=== PATIENT | female | born 1940 | race Caucasian/White ===

== ENCOUNTER → 2017-04-25 | Outpatient (CLI) | payer OTHER ==
[~2017-04-25] MED LIST: ACID CONTROLLER20 MG PO; ADALAT CC30 MG PO; ASPIR 8181 MG PO; BIOTIN5 M1; CAL MAG ASPART1 EACH; CAL MAG ZINC +1 EAC1 PO; CENTRUM SILVER1 EAC4 PO; CIPRO500 MG PO; CITRACAL PLUS1 EACH PO; CO Q-10100 MG PO; COLACE100 MG PO; CRESTOR10 MG PO; CURCUMIN1 GM; CYMBALTA30 MG PO; CYMBALTA60 MG PO; ENDOCET 5-3251 EACH PO; FISH OIL 1,001000 M2 PO; FISH OIL 500 M1 EACH PO; FISHOIL; FLAX OIL1000 MG PO; GINGER ROOT550 MG; GLUCOSA-CHOND-1 EACH PO; HYDROCHLOROTHIA25 M1 PO; HYDROCHLOROTHIA25 M2 PO; HYDROCODON-ACE1 EAC7 PO; HYDROCODONE-AP1 EAC6 PO; IBUPROFEN 800800 MG PO; KADIAN30 MG PO; LIDODERM 5%1 PATCH TOP; MAGNESIUM OXID400 MG; METOCLOPRAMIDE 55 M1 PO; MIRALAX255 GM PO; MOBIC15 MG PO; MOBIC7.5 MG PO; MOVANTIK25 MG PO; MS CONTIN15 MG PO; MS CONTIN30 MG PO; NEURONTIN 300300 M1 PO; NEURONTIN 400400 M1 PO; NEURONTIN600 MG PO; NEURONTIN800 MG PO; NIFEDICAL XL30 MG PO; Occuvite PO; RELAFEN750 MG PO; SALMON OIL 1,01 EACH; SUPER B COMPLE150 MG; TOVIAZ4 MG PO; TOVIAZ8 MG PO; TRAMADOL 50 MG50 MG PO; TUMERIC TEA; VISION PLUS LU1 EACH; VITAMIN D-32000 UNIT PO; VITAMIN D32000 UNI1; VITAMINC500 PO; VOLTAREN GEL 1100 G1 TOP
== END ==
LOC: ULTRA 15:06
DX: N20.0 Calculus of kidney (principal)

== ENCOUNTER → 2017-07-29 | Outpatient (CLI) | payer OTHER | LOC: RAD 14:01 | DX: M16.12 Unilateral primary osteoarthritis, left hip (principal) ==

== ENCOUNTER → 2017-08-09 | Outpatient (CLI) | payer OTHER | LOC: RAD 11:15 | DX: R05 Cough (principal) ==

== ENCOUNTER → 2017-10-30 | Outpatient (CLI) | payer OTHER | LOC: RAD 13:58 | DX: Z12.31 Encounter for screening mammogram for malignant neoplasm of breast (principal) ==

== ENCOUNTER → 2017-10-30 | Outpatient (CLI) | payer OTHER | LOC: ULTRA 12:48 | DX: M79.602 Pain in left arm (principal) ==

== ENCOUNTER 2020-03-30 13:32 | Inpatient (IN) | payer OTHER ==
[~2020-03-30] VITALS: Ht 170.2 cm; Wt 136.1 kg
[2020-03-30 13:34] VITALS: BP 148/87
--- NOTE | 2020-03-30 13:45 | NUR ---
reports pt is suppose to have L hip replacement but has not been able to until she lose's weight reports pt normally walks with walker but her mobility has changed significantly since Saturday.
[2020-03-30 14:22] LABS: ABSOLUTE NEUTROPHILS 4.7 thou/uL (1.4-8.2); BASOPHILS 0.7 % (0.0-2.0); EOSINOPHILS 1.1 % (0.0-3.0); HEMATOCRIT 38.7 % (37.0-47.0); HEMOGLOBIN 12.7 gm/dL (12.0-15.0); LYMPHOCYTES 14.3 % (24.0-44.0); MCH 31.1 pg (26.0-34.0); MCHC 32.9 g/dL (28.0-37.0); MCV 94.6 fL (80.0-100.0); MONOCYTES 10.1 % (1.0-8.0); PLATELET COUNT 221 thou/uL (150-400); POLYS 73.8 % (36.0-66.0); RDW 13.7 % (10.5-14.5); WBC 6.4 thou/uL (4.0-11.0)
[2020-03-30 14:30] LABS: URINE BILIRUBIN NEGATIVE (Negative); URINE BLOOD TRACE (Negative); URINE COLOR YELLOW; URINE GLUCOSE-RANDOM* NEGATIVE (Negative); URINE KETONES NEGATIVE (Negative); URINE LEUKOCYTES-REFLEX 3+ (Negative); URINE NITRITE-REFLEX NEGATIVE (Negative); URINE PROTEIN (DIPSTICK) TRACE (Negative); URINE UROBILINOGEN 0.2 E.U./dl (0.2-1.0)
[2020-03-30 14:31] LABS: URINE CLARITY CLOUDY
[2020-03-30 14:32] LABS: SQUAMOUS 0-3 Few /LPF (0-3); URINE WBC-REFLEX >25 Many /HPF (0-5)
[2020-03-30 14:33] LABS: BACTERIA-REFLEX >30 Many /HPF (None Seen); CRYSTALS None Seen /LPF (None Seen); URINE RBC None Seen /HPF (0-2)
[2020-03-30 14:35] LABS: ANION GAP 4 mmol/L (7-16); BUN 29 mg/dL (7-18); CALCIUM 8.9 mg/dL (8.5-10.1); CHLORIDE 102 mmol/L (98-107); CO2 31 mmol/L (21-32); CREATININE 1.3 mg/dL (0.6-1.0); GLUCOSE 94 mg/dL (74-106); POTASSIUM 3.5 mmol/L (3.5-5.1); SODIUM 137 mmol/L (136-145)
[2020-03-30 14:42] LABS: DIRECT BILIRUBIN < 0.1 mg/dL (<0.1-0.2); SGOT 19 U/L (15-37); SGPT 22 U/L (30-65); TOTAL BILIRUBIN 0.5 mg/dL (<0.1-1.0); TOTAL PROTEIN 6.6 g/dL (6.4-8.2)
[2020-03-30] MEDS ORDERED: TRAMADOL 50 MG50 MG PO (14:42)
[2020-03-30] MEDS ORDERED: HYDROXYZINE HCL10 M2 PO (14:43)
--- NOTE | 2020-03-30 14:45 | NUR ---
Pt has skin breakdown to folds near gluteus. Minor bleeding noted. Dr. Jensen notified
[2020-03-30 17:48] VITALS: BP 187/96
[2020-03-30 18:55] VITALS: BP 187/96; BP 188/98
[2020-03-30 19:36] VITALS: BP 163/93
--- NOTE | 2020-03-31 03:42 | NUR ---
PT ADMITTED INTO THE UNIT FROM THE ER AT 1915.PT IS ALERT AND ORIENTED TO SELF AND VERY CONFUSE AND FORGETFUL.PT ADMITTED WITH C/O OF HIP PAIN AND BLE PAIN FROM FALL(SATURDAY AND SATURDAY)WHILE STANDING UP.PT IS CONFUSED AND UNABLE TO GIVE INFORMATION.PT APPEARED TO BE ANXIOUS AND KEPT YELLING.PT WAS ADMINISTERED HYDROXYZIN AND TRAMADOL WITH NO IMPROVEMENT.DR MOLINA WAS PAGED AND HE ORDERED HALDOL 5MG PO .PT REMAINED CALM IN BED.PT IS INCONTINENET TO BOWEL AND BLADDER AND AN EXTERNAL CATHETER PUT IN PLACE.PT IS A ON REGULAR DIET.PT HAD 2 BM DURING SHIFT.PT IS MAX ASSIST.PO MEDS TAKEN WHOLE WITH NO ISSUES.PT HAS SKIN BREAKDOWN AND TEARS AND BRUISING.IV ACCESS ON RAC SL.WILL CONTINUE TO MONITOR PER PROTOCOL
[2020-03-31 07:58] VITALS: BP 161/98
--- NOTE | 2020-03-31 11:59 | NUR ---
PT ADMITTED RELATED TO UTI, FALLS, AMS. CM REVIEWED CHART AND SPOKE WITH CARE TEAM. CM CALLED AND SPOKE WITH PT'S SPOUSE THIS MORNING. CM ROLE INTRODUCED. SPOUSE INDICATED THAT PT RESIDES IN A HOUSE WITH SPOUSE WITH A RAMP TO ENTER THROUGH THE GARAGE AND ALL NEEDS ON 1 LEVEL. HE INDICATED THAT UP UNTIL THE WEEK PRIOR TO ADMISSION PT HAD BEEN ABLETO AMBULATE AROUND THE HOUSE WITH A FWW AND HAD BEEN ABLE TO ASSIST WITH HER BATHING, DRESSING, AND TOILETING. HE INDICATED THAT PT HAD BEEN WORKING HARD FOR PAST YEAR ON WEIGHT LOSS AND MORBILITY IN PERPERATION FOR A HIP REPLACEMENT. SPOUSE INDICATED THAT PT HAD JUST STATED HH SERVICES WITH [facility] HAD A VIST WITH NURSE AND PT. HE INIDCATED THAT PT HAD BEEN TO [facility] IN THE PAST. HE INIDCATED THAT HE WAS INTERESTED IN PT POSSIBLY GOING TO 5N. 5N ASSESSED AND INDICATED THAT AT THIS TIME PT WOULDN'T BE APPROPRIATE DUE TO MENTATION. CM TO FOLLOW INDICATED WITH DC PLANNING.
--- NOTE | 2020-03-31 14:01 | NUR ---
THIS NURSE SPOKE WITH DR MOLINA ABOUT PATIENT'S INCREASED ANXIETY HE WANTS CONSULT WITH DR TORRES. ALSO GAVE HALDOL XS 1 ORDER. THIS NURSE GAVE UPDATE ABOUT PATIENTS CARE AND CONDITION.
[2020-03-31 20:07] VITALS: BP 177/89
--- NOTE | 2020-04-01 02:59 | NUR ---
Pt care assumed with pt in bed watching tv at 1915.Pt is alert and oriented to self.Pt is very confuse appeared to be in no distress and spent a calm shift.Pt is incontinent to B/B and maximum assist x2 to 3 persons.Pt pulling out external catheter.Pt receieved phone call from family.Will continue to monitor per poc
[2020-04-01 08:00] VITALS: BP 186/98
--- NOTE | 2020-04-01 08:11 | NUR ---
Nutrition: Assess due to BMI >40. BMI 47 kg/m2 - extreme class III obesity. Pt admitted for falls, AMS, UTI, found to have pyelonephritis and anxiety too. Pt not appropriate for wt loss education at this time given mentation. Noted to be A&O to self only and very confused per EMR. Per CM note, spouse had indicated pt has been working hard this past year on wt loss and mobility in preparation for hip replacement. Weight hx reviewed with limited wt loss findings. Pt weighed 303# per 04/2016, w/ CBW 300# per 03/30/20. Upon further EMR review, pt w/ skin breakdown and current poor po intake. See RD assessment for further nutrition details/intervention plan.
--- NOTE | 2020-04-01 10:36 | NUR ---
PATIENT RESTING IN BED WATCHING TV TOOK AM MEDS W/O DIFFICULTY. PT THERAPY TO WORK WITH PATIENT THIS AM. CALLED TO UPDATE CONDITION. PT GIVEN PRN PAIN MED AND SCEDULED MED ORDERED BY DR TORRES.
--- NOTE | 2020-04-01 12:08 | EKG ---
[facility] [place] [address] ELECTROCARDIOGRAM REPORT Name: AAMIR MILLER Room #: 446- ADM IN M.R.#: [id number] Admission: 03/30/20 Attend Phys: Chintan Jara MD Discharge: Date of : 42 Report #: [id number] THIS REPORT FOR: cc: Chintan Jara MD, Neal A. MD Couchonnal, Luis F. MD ~ THIS REPORT FOR: //name// [facility] Test Date: 2020-04-01 Test Time: 09:00:35 Pat Name: AAMIR MILLER Department: Room: 446 Gender: F Well Control Instructor: NEYDA : 1940 Requested By: Esperanza Perez Order Number: [id number] MD: Mario Piper Measurements Intervals Bock Rate: 81 P: 18 ME: 186 QRS: -26 QRSD: 100 T: 40 QT: 413 QTc: 480 Interpretive Statements Sinus rhythm Borderline left axis deviation Abnormal R-wave progression, early transition Compared to ECG 12/18/2011 15:52:30 Intraventricular conduction delay no longer present Electronically Signed On 04-01-2020 12:06:27 CDT by Mario Piper [email or web address] <ELECTRONICALLY SIGNED> By: Mario Piper MD 04/01/20 1206 9 09 Mario Piper MD /EPI
--- NOTE | 2020-04-01 14:37 | NUR ---
PATIENT WAS SEEN BY AMBREEN GANDHI NP WITH DR. BOYKIN, FOR REHAB CONSULT ON 03/31/20. AT THIS TIME PATIENT IS NOT A CANDIDATE FOR ACUTE REHAB DUE TO INABILITY TO PARTICIPATE/COOPERATE WITH THERAPY DUE TO DECREASED MENTATION. WILL CONTINUE TO FOLLOW AND REASSESS FOR ACUTE REHAB/5N IF IMPORVEMENT SEEN. THANK YOU FOR THIS REFERRAL.
[2020-04-01 15:05] VITALS: BP 164/90
[2020-04-01 20:05] VITALS: BP 148/107
--- NOTE | 2020-04-02 02:07 | NUR ---
ASSUMED PT CARE AT 1900. PT IS VERY CONFUSED - YELLS OUT WHEN STAFF CHANGES THE BED LINEN. PT HAS A LOT OF SKIN BREAKDOWN, SKIN TEARS ON SIDES OF LEGS, REDNESS ON BUTTOCKS, BREAKDOWN IN BETWEEN FOLDS OF LEGS. THE SKIN IS VERY FRAGILE STARTED BLEEDING DURING THIS SHIFT. INCONTINENT OF BB. PM MEDS GIVEN WITH NO ISSUES. BP HIGH TONIGHT WHICH SEEMS TO BE PTS NORMAL DURING THIS STAY. DID NOT SLEEP MUCH BUT RESTED CALMLY IN BED ALL OF SHIFT.
[2020-04-02 06:00] VITALS: BP 163/89
[2020-04-02 08:54] VITALS: BP 171/82
--- NOTE | 2020-04-02 16:42 | NUR ---
PT A&OX SELF. IV INTACT IN R AC. INFUSING IV ABX. INCONT OF BLADDER WILL NOT LEAVE PURE WICK IN PLACE. MOANS AND YELLS OUT THROUGHOUT THE DAY. SKIN TEARS ON BOTH L AND R BUTTOCKS. ATIVAN WAS ORDERED TODAY WITH POSITIVE EFFECT. CALL LIGHT W/I REACH THOUGH PT NOT ORIENTED ENOUGH TO USE. WILL CONT POC,
[2020-04-02 18:02] VITALS: BP 176/100
--- NOTE | 2020-04-02 20:10 | NUR ---
1920 ASSUMED CARE OF PT AFTER REPORT FROM ADELE 2007 BASELINE ASSESSMENT COMPLETED PT ALERT ONLY TO SELF, RESTING IN BED WITH NO COMPLAINTS AT THIS TIME, MEDS GIVEN PER JAN, PT IS CONFUSED, AND SLIGHTLY AGITATED, WILL CONTINUE TO MONITOR WITH HOURLY ROUNDING, PT IS INCONTINEN, POSITION CHANGE IN BED, FALL PRECAUTIONS IN PLACE.
[2020-04-02 22:39] VITALS: BP 164/88
[2020-04-03 03:37] VITALS: BP 148/84
[2020-04-03 09:06] VITALS: BP 165/70
[2020-04-03 15:53] VITALS: BP 112/112
--- NOTE | 2020-04-03 16:43 | NUR ---
PT A&O TO SELF ONLY. NON AMBULATORY AT THIS TIME. PT IS COMPLETLY CONFUSED. HAS PULLED OUT ANOTHER IV TODAY. R FA PIV RESTARTED BY IV TEAM. INCONT OF BOWEL AND BLADDER TODAY. PT MAKES NO ATTEMP TO HELP TURN IN THE BED THOUGH SCREAMS WHEN TURNED. SKIN TEARS NOTED TO BOTH LEFT AND RIGHT BUTTOCKS.
[2020-04-03 19:16] VITALS: BP 163/85
[2020-04-04 05:56] VITALS: BP 174/86
--- NOTE | 2020-04-04 07:57 | NUR ---
PT LYING IN BED. INCONTINENT. DENIES PAIN. RESTING COMFORTABLY. NO NEEDS VOICED. FREQUENT OBSERVATION.
[2020-04-04 08:07] VITALS: BP 181/93
--- NOTE | 2020-04-04 10:41 | NUR ---
WOUND CONSULT; SKIN TEARS WERE IDENTIFED TO THE HIPS BULATERALLY, LIKELY FROM TURNING. THE PATIENTS LOWER BODY IS LARGER THAN THE UPPER BODY WHICH HAS VERY LOOSE SKIN WHICH MAKES IT DIFFICULT TO TURN. BILATERAL KNEES HAVE BRUSING OF UKNOWN ORIGION. RECOMMENDATIONS; 1-INTERDRY TO KNEES(POSTERIOR) BILATERALLY. CHANGE M/W/F AND IF SOILED. 2-BILATERAL PROFORE BOOTS. 3-LOW AIR LOSS PUMP. 4-Q2H TURNING 5-APPLY PUREWICK WITH FREQUENT ASSESSMENT FOR REPOSITIONING THE DEVICE. DISCUSSED WITH RN
[2020-04-04 17:42] VITALS: BP 165/80
[2020-04-04 20:07] VITALS: BP 141/75
--- NOTE | 2020-04-04 20:37 | NUR ---
ASSUMED CARE OF PATIENT AT 0715, PATIEHT DENIES PAIN THIS SHIFT. PATIENT VERY CONFUSED, HOLLERING MOST OF THE SHIFT. DR TORRES HERE THIS SHIFT, INFOEMED DR TOM KOLB PATIENT'S BEHAVIOR, NO NEW ORDERS RECEIVED. PATIENT REFUSED BREAKFAST, LUNCH AND WAS ASSIST WITH DINNER MEAL SHE ATE 50%. LORAZEPAM 0.25 PO GIVEN NOT EFFECTIVE. /MARYJANE UPDATED AT THE END OF THE SHIFT. PATIENT INCONT. OF URINE. WOUND CARE SAW THE PATIENT, WOULD LIKE TO KEEP HER DRY, TRIED FEMALE CATHETER, PATIENT REMOVED X 3, AND SHE KEPT THROWING LINEN AND OTHER ITEMS ON THE FLOOR. DRESSINGS TO MAGDY. BUTTOCKS DONE BY WOUND RADHA, AND REINFORCED THIS SHIFT. WILL CONTINUE TO MONITOR.
--- NOTE | 2020-04-05 04:13 | NUR ---
RECIEVED CARE OF THIS PATIENT AT 1900. PATIENT ALERT AND ORIENTED TO SELF ONLY. PATIENT ON BEDREST. SCREAMS AND HOLLARS WHEN TURNED. DOES SEEM TO UNDERSTAND THE NEED FOR THE TURNING WHEN YOU EXPLAIN THE NEED TO PATIENT. HAS DRESSING ON BUTTOCLS. BODY HAS LOTS OF BRUISES. HAS HAS HAD VERBAL AND VISUAL HALLUCINATIONS. AT TIMES IS VERY LOUD AND HOLLARS THINGS OUT. NOT ALWAYS EASY TO REDIRECT. ASKED PATIENT IF SHE WOULD TRY AN EXTERNAL FEMALE CATH, SHE SAID YES. PLACED AND WITH MINUTES IT WAS PULLED OUT. SLEPT OFF AND ON DURING NIGHT. DENIES PAIN UNLESS MOVING HER. SHE IS AFRAID OF FALLING OR GETTING HURT WHEN TURNED.
[2020-04-05 08:14] VITALS: BP 171/88
--- NOTE | 2020-04-05 10:41 | NUR ---
See follow up documentation 04/05. Continue oral supplements as ordered.
--- NOTE | 2020-04-05 14:14 | NUR ---
Assumed care of pt at 0700. Pt a&ox1. Confused. Frequently yells out for help but when asked what she needs, pt does not make sense. Skin tear dressings changed. Pt refuses to work with physical therapy. Provider called unit and states he wants physical therapist to call him after they work with patient. Might need SNF placement. Q2h turn. Incontinent of B&B. Talked to pt's and updated on patient. Fall precautions in place. Will continue to monitor.
--- NOTE | 2020-04-05 14:15 | NUR ---
PSYCH STILL WORKING TO ADJUST MEDS. PT IS PROGRESSING SLOWLY. OT WORKED WITH PT YESTERDAY BUT PT DIDN'T. HOPE IS THAT PT WILL CLEAR ENOUGH TO O TO 5N ONCE MEDICALLY STABLE. CM TO FOLLOW INDICATED WITH DC PLANNING.
[2020-04-05 14:44] VITALS: BP 157/79
[2020-04-05 19:25] VITALS: BP 164/89
--- NOTE | 2020-04-06 04:00 | NUR ---
ASSESSMENT COMPLETED. PT WAS OBSERVED SLEEPING AT START OF SHIFT. PT LATER WAS AWAKE TO TAKE PILLS. I OFFERED ICE CREAM, SHE WAS HAPPY AND ATE IT- SHE WAS THANKFUL. WE COULD HAVE SIMPLE CONVERSATION - NOT ANYTHING DIFFICULT TO PROCESS BECAUSE THEN SHE GETS PARANOID. PRIOR TO CLEANING AND REPOSITIONING HER, I INFORMED HER BUT STILL SHE SCREAMED FROM PAIN IN KNEES AND BOTTOM- AND "THINK" WE ARE HURTING HER. SHE WAS SLIGHTLY COOPERATIVE. DRSG CHANGE APPLIED TO BUTTOCKS. INTERDRY APPLIED BEHIND KNEES.WILL CONTINUE WITH POC TILL EOS.
[2020-04-06 04:51] VITALS: BP 135/77
[2020-04-06 07:47] VITALS: BP 138/69
--- NOTE | 2020-04-06 10:31 | NUR ---
WOUND CARE F/U ASSESSED WOUNDS W/ SENIOR ANALYTICAL CHEMIST ADELE, PT CONFUSED, YELLING OUT AT TIMES, REASSURANCE GIVEN STAFF TRYING TO CARE FOR WOUNDS, INCONT LARGE AMT URINE, PER NSG STAFF PT PULLING PURE WICK CATH OUT. HIP/BUTTOCKS WOUNDS HEALING, NO S/S INFECTION, SCANT DRAINAGE, SKIN TEAR R POSTERIOR KNEE, SCANT BLEEDING NOTED, XEROFORM APPLIED AND BORDER FOAM DRSG, PHOTOS TAKEN, SEE PROCESS INTERVENTION FOR WOUND DETAILS RECOMMENDATIONS ADVISED STAFF TO BE CAREFUL W/ TURNING, CONT POC, XEROFORM TO SKIN TEARS, COVER W/ ABD PAD OR BORDER FOAM DRS CONT TURN Q 2 HOURS, CONT LOW AIR LOSS PUMP TO BED TRY PURE WICK CATH AGAIN SENIOR ANALYTICAL CHEMIST AWARE
--- NOTE | 2020-04-06 12:08 | NUR ---
PHYSICIAN ASKED THAT CM LOOK INTO PT GOING TO [facility] OR SNF UPON DC. HE CALLED AND SPOKE WITH PT'S SPOUSE. CM REACHED OUT TO DR. TORRES TO SEE WHICH SHE THOUGH MIGHT BE MOST APPROPRIATE. AWAITING RESPONSE. CM WILL THEN CALL SPOUSE WELL TO DISCUSS OPTIONS.
[2020-04-06 15:13] VITALS: BP 143/79
--- NOTE | 2020-04-06 15:18 | NUR ---
CM SPOKE WITH PT'S SPOUSE AND EMAILED LIST OF IN NETWORK SKILLED REHAB FACILITIES. CM CALLED [facility] AND THEY ARE OON AND WOULD OWE $337.50/DAY WHICH THEY WERE WILLING TO REDUCE TO $150/DAY. SPOUSE ASKED THAT [facility]ERR[facility] TO [facility], [facility], AND [facility]. CM NOTIFIED DR. MOLINA. AWAITING RESPONSES. CM TO FOLLOW INDICATED WITH DC PLANNING.
--- NOTE | 2020-04-06 16:15 | NUR ---
FAXED REFERRAL TO [facility] RECEIVED CONFIRMATION AND LEFT MSG WITH TERRANCE IN ADM. FAXED REFERRAL TO [facility] OP SPOKE WITH PÉREZ IN ADM SHE RECEIVED REFERRAL AND WILL REVIEW. FAXED REFERRAL TO [facility] SPOKE WITH ANANT IN ADM SHE RECEIVED REFERRAL AND WILL REVIEW. DP TO FOLLOW.
--- NOTE | 2020-04-06 18:25 | NUR ---
PT A&OX SELF. NON AMBULATORY AT THIS TIME. IV INTACT IN R FA. PT SCREAMS "YOUR HURTING ME" WITH ALL CARES. SKIN TEARS ON HIPS/ BUTTOCKS ARE LOOKING IMPROVED, SEE PHOTO'S. INCONT OF B/B THROUGHOUT THE DAY. CM IS WORKING ON SENT REFERALS TO SNF. WILL CONT POC.
[2020-04-06 22:10] VITALS: BP 139/75
--- NOTE | 2020-04-07 02:17 | NUR ---
PT WAS OBSERVED WATCHING TV IN HER ROOM AT START OF SHIFT.PT DENIED PAIN,N/V SO FAR. PT ANXIOUS WITH CARE,SCREAMS OUT BEFORE SHE IS TOUCHED.EMOTINAL SUPPORT GIVEN WITH CARE.DRSG ON HER HIPS AND POSTERIOR KNEE REINFORCED.PT REF TO HAVE HER PRAFO BOOTS ON.PT REPOSITIONED WHILE IN BED .PT RESTING ON HER BED AT THIS TIME.FALL PRECAUTIONS IN PLACE,CALL LIGHT WITHIN REACH.
[2020-04-07 05:25] VITALS: BP 140/66
[2020-04-07 05:38] LABS: ABSOLUTE NEUTROPHILS 2.3 thou/uL (1.4-8.2); BASOPHILS 2.6 % (0.0-2.0); EOSINOPHILS 5.2 % (0.0-3.0); HEMATOCRIT 34.7 % (37.0-47.0); HEMOGLOBIN 11.5 gm/dL (12.0-15.0); LYMPHOCYTES 24.1 % (24.0-44.0); MCH 31.4 pg (26.0-34.0); MCV 94.9 fL (80.0-100.0); MONOCYTES 10.2 % (1.0-8.0); PLATELET COUNT 266 thou/uL (150-400); POLYS 57.9 % (36.0-66.0); RBC 3.66 mil/uL (4.20-5.00); RDW 13.7 % (10.5-14.5); WBC 3.9 thou/uL (4.0-11.0)
[2020-04-07 06:18] LABS: ALBUMIN 2.3 g/dL (3.4-5.0); CALCIUM 8.2 mg/dL (8.5-10.1); CREATININE 0.8 mg/dL (0.6-1.0); POTASSIUM 4.1 mmol/L (3.5-5.1); TOTAL BILIRUBIN 0.5 mg/dL (<0.1-1.0); TOTAL PROTEIN 5.2 g/dL (6.4-8.2)
[2020-04-07 07:14] VITALS: BP 145/69
--- NOTE | 2020-04-07 10:48 | NUR ---
CM HAD FOLLOWED UP WITH SPOUSE YESTERDAY EVENING AND HE INDICATED THE HAD REACHED OUT TO [facility] AND THAT [employer] INFORMED HIM THAT LONG PT'S IS MEDICARE CERTIFIED FACILITY THEY WOULD BE COVERED. CM TRIED TO CONVEY TO HIM THAT THAT ISN'T TECHNICALLY THE CASE AND THAT [facility] IS OON AND THAT THEY HAD LOWERED DAILY OP RATE TO $150 PER DAY IF THEY ELECTED TO GO THERE. SPOUSE WAS LOOKING AT [employer] AND WANTED TO LOOK OVER SOME OTHER FACILITY RATEINGS. THIS AM CM HEARD BACK FROM [facility] AND [facility] AND THEY CAN ACCEPT PT. CM CALLED P'S SPOUSE AND HE INDICATED THE HAD CALLED [employer] AND AGAIN ON A RECORDED LINE HE WAS INFORMED THAT HEY SHOULD BE OVERED TO GO TO [facility]. HE WENT AND BROUGHT COPIS OF INSURANCE CARDS TO [facility] THIS AM AND SPOKE WITH MARIBELL. CM CALLED AND SPOKE WITH MAGALY SHE IS AWARE AND IS FOLLOWING UP STATING THEY MIGHT NO HAVE TO BILL THEY HAVE A SECONDARY. CM AWAITING RESPONSE.
--- NOTE | 2020-04-07 11:34 | NUR ---
FAXED REFERRAL TO [facility] RECEIVED CONFIRMATION AND SPOKE WITH MAGALY IN ADM SHE WILL REVIEW.
[2020-04-07] MEDS ORDERED: CEFDINIR300 MG PO (12:35)
[2020-04-07] MEDS ORDERED: DIVALPROEX SOD250 M3 PO (12:35)
[2020-04-07] MEDS ORDERED: DEPAKOTE500 MG PO (12:36)
--- NOTE | 2020-04-07 14:22 | NUR ---
[facility] IS ABLE TO ACCEPT PT THIS DAY. ORDERS COMPLETED AND FAXED. CHART COPY ORDERED. CM NOTIFIED PT'S SPOUSE HE IS AWARE AND AGREEABLE. CAYLA SANDOVAL ARRANGED FOR 1530. REPORT TO BE CALLED TO . NO OTHER CM INTERVENTION INDICATED. CASE CLOSED.
--- NOTE | 2020-04-07 16:07 | NUR ---
FAXED DC ORDERS/SUMMARY TO [facility] SPOKE WITH MAGALY IN ADM SHE RECEIVED ORDERS.
--- NOTE | 2020-04-07 16:48 | NUR ---
ASSUMED CARE OF PATIENT AT 0715, PATIENT ALERT X1 WITH CONFUSION AND FORGETFUL. PATIENT DENIES PAIN THIS SHIFT. C/O PAIN WITH MOVING IN BED. PATIENT HAS RIGHT FOREARM IV IN PLACE, FLUSHED WITH NS AND REMAINS PATENT. PATIENT HOLLARS OUT MOST OF THE SHIFT, SHE RECEIVED DEPAKOTE SCHEDULED THIS AM, ALSO GAVE RISPERIDONE 0.25 MG/PO/PRN, MEDICATION WAS NOT EFFECTIVE. PATIENT WILL DISCHARGE TO [facility], REPORT GIVEN TO ESAU/BARRY. ALL PERSONAL BELONGINGS SENT WITH THE PATIENT, DISCHARGE PACKET SENT WITH THE PATIENT. UPDATE GIVEN TO /MARYJANE.
== END 2020-04-07 17:02 | DRG 689 ==
LOC: ER 13:32 → EROBS 15:06 → 4S 15:06
PROVIDERS: Emergency Medicine; Psychiatry & Neurology Psychiatry; ADMIT Family Medicine
DX: N39.0 Urinary tract infection, site not specified (principal); G92 Toxic encephalopathy; Z68.42 Body mass index [BMI] 45.0-49.9, adult; N12 Tubulo-interstitial nephritis, not specified as acute or chronic; I10 Essential (primary) hypertension; E78.5 Hyperlipidemia, unspecified; F41.9 Anxiety disorder, unspecified; M16.10 Unilateral primary osteoarthritis, unspecified hip; F03.90 Unspecified dementia, unspecified severity, without behavioral disturbance, psychotic disturbance, mood disturbance, and anxiety; E66.01 Morbid (severe) obesity due to excess calories; B96.89 Other specified bacterial agents as the cause of diseases classified elsewhere; B95.2 Enterococcus as the cause of diseases classified elsewhere; Z96.0 Presence of urogenital implants; Z79.899 Other long term (current) drug therapy; Z88.1 Allergy status to other antibiotic agents; Z88.2 Allergy status to sulfonamides; Z87.442 Personal history of urinary calculi
CPT/HCPCS: 10102

== ENCOUNTER 2020-08-23 21:57 | Inpatient (IN) | payer OTHER ==
[~2020-08-23] VITALS: Ht 172.7 cm; Wt 108.9 kg
--- NOTE | ~2020-08-23 | EMS ---
[address] [address] EMS Patient Care Report Name: AAMIR MILLER Room #: REG SOTO Daugherty#: [id number] Admission: 08/23/20 Attend Phys: Discharge: Date of : 42 Report #: [id number] THIS REPORT FOR: //name// Report Transmitted: 08/23/2020 22:54 EMS Care Summary [facility] MED-ACT Incident [id number] @ 08/23/2020 21:18 Incident Location [address] [place] [address] Patient AAMIR MILLER Female, 80 Years 1940 Patient Address [address] [place] [address] Patient History Behavioral/Psychiatric Disorder,Dementia, Patient Medications Wellbutrin, Chief Complaint "Her hand is swollen" Disposition Transported No Lights/[place] [facility] Reason Sick Person Transported To [facility] Narrative upon our arrival located pt inside private residence with family and FD at her side. pt found seated in a recliner inside living area with luis lift in place, being cleaned by a family member. pt noted to be loudly yelling, easily agitated. FD explained family summoned 911 on the pt's behalf with a c/o atraumatic R hand and wrist swelling as well as discomfort. family confirmed this had been present since the previous Saturday with substantial increase per [address] [address] EMS Patient Care Report Name: AAMIR MILLER Room #: REG [facility]US[facility].#: [id number] Admission: 08/23/20 Attend Phys: Discharge: Date of : 42 Report #: [id number] their account in swelling over the course of today. family denied pt had previously been evaluated by a physician for the swelling or pain. v/s obtained. family denied any recent known injury including fall. pt's family confirmed the pt to have a history of dementia without any recent changes to her normal mental status per their account. pt lifted to EMS cot where she was secured in a POC with appropriate seatbelts applied. v/s monitored en route. pt found to be uncooperative and easily agitated en during transport. 4 Lead EKG placed. venous access obtained and blood glucose measured. report called to ED without incident. upon arrival pt sheet lifted to ED bed 4 with rails upx2 and staff at her side. report given to ED RN without incident. Initial Vitals @21:47P: 101, @21:43P: 116,R: 20,BP: 120/81,GCS: 14,SpO2: 91,Revised Trauma: 12, @21:52P: 102,R: 20,BP: 128/69,GCS: 14,Temp: 100.5F,Glucose: 141,SpO2: 92,Revised Trauma: 12, @21:33P: 101,R: 20,BP: 136/85,GCS: 14,SpO2: 93,Revised Trauma: 12, Assessments @21:32MENTAL:Confused,Person Oriented,SKIN:HEENT:Eyes: Right: Constricted,Eyes: Left: Constricted,Eyes: Left Pupil: 2-mm,Eyes: Right Pupil: 2-mm,LUNG SOUNDS:ABDOMEN:PELVIS//GI:Incontinence,EXTREMITIES:Right Arm: Edema,Right Arm: Other,PULSE:NEURO: Impression Infectious Disease Procedures @21:47Saline Lock 10cc (20 ga) Site: Other Peripheral (Not Listed)Response: UnchangedSucceeded@21:45Surgical Mask on PatientResponse: Unchanged Timeline 21:16,Call Received 21:16,Psap Call 21:18,Dispatched 21:19,En Route 21:27,On Scene 21:29,At Patient 21:33,BP: 136/85 M,PULSE: 101,RR: 20 R,SPO2: 93 Ox,ETCO2: ,BG: ,PAIN: ,GCS: 14, 21:42,Depart Scene 21:43,BP: 120/81 M,PULSE: 116,RR: 20 R,SPO2: 91 Ox,ETCO2: ,BG: ,PAIN: ,GCS: 14, 21:45,Surgical Mask on Patient,Response: Unchanged 21:47,Saline Lock 10cc 20 ga Site: Other Peripheral (Not Listed),Response: UnchangedSucceeded, 21:47,BP: / M,PULSE: 101,RR: R,SPO2: Ox,ETCO2: ,BG: ,PAIN: ,GCS: , 21:52,BP: 128/69 M,PULSE: 102,RR: 20 R,SPO2: 92 Ox,ETCO2: ,B,PAIN: ,GCS: [address] [address] EMS Patient Care Report Name: AAMIR MILLER Room #: REG SOTO Daugherty#: [id number] Admission: 08/23/20 Attend Phys: Discharge: Date of : 42 Report #: [id number] 14, 21:54,At Destination 22:10,Call Closed Disclaimer v1.1 Copyright 2020 [employer] This EMS Care Summary contains data elements from the applicable legal record (which may be displayed differently). It is designed to provide pertinent information for the following purposes: continuity of care, clinical quality, and state data reporting. The complete legal record is available to ED staff and administrators of the receiving hospital in [facility]'s Patient Tracker. All data is provided "as is."
[~2020-08-23 21:57] MED LIST changes: +CEFDINIR300 MG PO; +DEPAKOTE500 MG PO; +DIVALPROEX SOD250 M3 PO; +HYDROXYZINE HCL10 M2 PO
[2020-08-23 22:00] VITALS: BP 145/76
[2020-08-23] MEDS ORDERED: BUSPIRONE HCL10 MG PO (22:02)
[2020-08-23] MEDS ORDERED: HYDROXYZINE HCL10 M2 PO (22:03)
[2020-08-23] MEDS ORDERED: CLOTRIMAZOLE-BE15 GM TOP (22:05)
[2020-08-23 22:55] LABS: HEMATOCRIT 40.9 % (37.0-47.0); HEMOGLOBIN 13.5 gm/dL (12.0-15.0); MCH 31.5 pg (26.0-34.0); MCHC 32.9 g/dL (28.0-37.0); MCV 95.8 fL (80.0-100.0); PLATELET COUNT 232 thou/uL (150-400); RBC 4.27 mil/uL (4.20-5.00); RDW 13.9 % (10.5-14.5); WBC 6.8 thou/uL (4.0-11.0)
[2020-08-23 23:04] LABS: CALCIUM 7.9 mg/dL (8.5-10.1); CREATININE 0.8 mg/dL (0.6-1.0)
[2020-08-23 23:10] LABS: ALBUMIN 2.1 g/dL (3.4-5.0); TOTAL BILIRUBIN 0.5 mg/dL (0.2-1.0); TOTAL PROTEIN 5.4 g/dL (6.4-8.2)
[2020-08-24 00:09] LABS: URINE BILIRUBIN NEGATIVE (Negative); URINE BLOOD 3+ (Negative); URINE CLARITY CLOUDY; URINE COLOR YELLOW; URINE GLUCOSE-RANDOM* NEGATIVE (Negative); URINE KETONES TRACE (Negative); URINE PROTEIN (DIPSTICK) 1+ (Negative); URINE UROBILINOGEN 0.2 E.U./dl (0.2-1.0)
[2020-08-24 00:27] LABS: ABSOLUTE NEUTROPHILS 4.8 thou/uL (1.4-8.2)
[2020-08-24 00:28] LABS: PLATELET ESTIMATE NORMAL
[2020-08-24 00:29] LABS: URINE LEUKOCYTES-REFLEX 2+ (Negative); URINE NITRITE-REFLEX POSITIVE (Negative)
[2020-08-24 00:42] LABS: CASTS None Seen /LPF (None Seen); CRYSTALS None Seen /LPF (None Seen); MUCUS 0-3 Light strn/LPF (None Seen); SQUAMOUS 0-3 Few /LPF (0-3); URINE RBC >20 Many /HPF (0-2); YEAST-REFLEX Present (None Seen)
[2020-08-24 00:59] VITALS: BP 135/79
--- NOTE | 2020-08-24 01:19 | NUR ---
TRIED TO CALL REPORT. NURSE UNAVAILABLE.
[2020-08-24 02:18] VITALS: BP 175/74
--- NOTE | 2020-08-24 02:35 | NUR ---
PT WAS ADMITTED TO THE UNIT FROM THE ER IN A STABLE CONDITION.PT WAS SCREAMING IN A HIGHPITCHED TONE WHEN SHE WAS BEING TRANSFERRED FROM THE CART TO THE BED.HER R ARM IS WARM,RED AND SWOLLEN.PT'S ADMISSION HX AND ASSESSMENT COMPLETED WITH THE HELP OF HER DTR WHO IS HER PRIMARY SHEET ROCK APPLIER AT HOME.PT'S BUTTOCK WAS RED,BARRIER CREAM IN PLACE.PT SLEEPING ON HER BED AT THIS TIME.FALL PRECAUTIONS IN PLACE,CALL LIGHT WITHIN REACH.
[2020-08-24 03:15] VITALS: BP 145/88
[2020-08-24 07:15] VITALS: BP 170/76
[2020-08-24] MEDS ORDERED: DEPAKOTE ER500 M1 PO (08:16)
--- NOTE | 2020-08-24 08:58 | NUR ---
ASSESSMENT: CM REVIEWED CHART AND ATTEMPTED TO MEET WITH PATIENT. PT WAS STILL ASLEEP AND SOMEWHAT CONFUSED. CM REACHED OUT TO PATIENTS . PT IS ADMITTED FOR CELLULITIS AND IS CURRENTLY ON IV ANBX. REPORTS THAT PATIENT HAS A FWW AT HOME, LIFT CHAIR, AND RAMP TO ENTER THE HOME. REPORTS SHE IS NORMALLY A SIT TO STAND. PT HAS BEEN TO [facility] IN THE PAST AND [facility]. PT HAS ALSO HAD [facility] IN THE PAST BUT NOT CURRENTLY. REPORTS THEIR DAUGHTER IS ALSO A WHEELAGE CLERK AND HELPS ASSIST WITH THEIR MOTHER. PT NEEDS ASSISTANCE WITH ADLS. PT/OT ORDERED TO SEE PATIENT AND EVALS ARE PENDING. CM WILL CONTINUE TO FOLLOW TO ASSIST NEEDED.
[2020-08-24 16:15] VITALS: BP 182/88
--- NOTE | 2020-08-24 18:35 | NUR ---
PT IS AOX1, VSS, PT SCREAMS OUT WHEN TOUCHED BY STAFF. PT WAS TURNED Q 2HRS, TAKES PILLS WHOLE WITH SIPS OF WATER. AT BEDSIDE MOST OF THE DAY. PT IV WAS PULLED OUT, IV TEAM CALLED FOR A NEW SITE. NURSE UNABLE TO GET NEW IV STARTED. WILL CONTINUE TO MONITOR.
[2020-08-24 18:56] VITALS: BP 146/74
--- NOTE | 2020-08-24 19:47 | NUR ---
1900 ASSUMED CARE OF PT AFTER BEDSIDE REPORT, PER KARINA NURSE NO IV SINCE EARLIER IN SHIFT, ATTEMPTS BUT NO SUCCESS, WILL ATTEMPT AGAIN. IV TEAM TO ROOM BUT WAS CALLED AWAY, STATED WILL RETURN. 1930 BASELINE ASSESSMENT COMPLETED, FALL PRECAUTIONS IN PLACE, WILL CONTINUE TO MONITOR
--- NOTE | 2020-08-25 01:06 | NUR ---
ASSUMED PT CARE AT AROUND 2330 HRS. PT IN BED. DISORIENTED X 4. PT HAD EXTERNAL CATHETER-SHE IS TOO CONFUSED TO KEEP IT INTACT, SO WE JUST KEPT IT OFF. PT ALSO ALREADY DC/D THE PIV THAT WAS ON L HAND. PT CLEANED AND REPOSITIONED. REQUIRES ATLEAST 2 PEOPLE BECAUSE SHE IS RESISTANT TO BEING REPOSITIONED. BLE ELEVATED ON PILLOWS. PRN TRAMADOL GIVEN FOR GENERALISED DISCOMFORT. PT ALSO SEEMS VERY RESTLESS AND CRYING OUT, SO PRN ATARAX GIVEN. HOPEFULLY PT WILL BE ABLE TO SETTLE DOWN AND SLEEP. FALL PREC IN PLACE. WILL CONTINUE WITH POC TILL EOS.
[2020-08-25 05:53] VITALS: BP 137/77
[2020-08-25 07:13] LABS: CALCIUM 8.5 mg/dL (8.5-10.1); CREATININE 0.7 mg/dL (0.6-1.0); POTASSIUM 4.6 mmol/L (3.5-5.1)
[2020-08-25 08:04] VITALS: BP 140/86
[2020-08-25 09:00] VITALS: BP 140/86
--- NOTE | 2020-08-25 12:30 | NUR ---
ON-GOING ASSESSMENT: CM REVIEWED CHART AND SPOKE WITH BEDSIDE RN WELL PATIENTS . PT IS SLOWLY PROGRESSING TOWARDS DISCHARGE GOALS WITH POSSIBLE PLANS OF DISCHARGE HOME TOMORROW WITH HOME HEALTH CARE ([facility]). CM NOTIFIED LI[facility]ON AT [facility] TO UPDATE. CM SPOKE WITH TO UPDATE AND PT IS DEPENDENT WITH MOBILITY AND WILL NEED TRANSPORTATION ARRANGED AT DISCHARGE. CM WILL CONTINUE TO FOLLOW TO ASSIST NEEDED.
[2020-08-25 19:31] VITALS: BP 143/71
--- NOTE | 2020-08-26 01:50 | NUR ---
ASSESSED AT START OF SHIFT. PT CONFUSED ALERT TO SELF. MOANS OUT. PAIN AND EVENING MEDS GIVEN. PT INCONTINENT REQUIRES MAX ASSIST. FALL PREC IN PLACE AND HOURLY ROUNDING DONE. PT SLEPT THROUGH THE NIGHT. WILL CONT WITH POC TILL EOS.
--- NOTE | 2020-08-26 08:24 | HC ---
[facility] [place] [address] CONSULTATION Name: AAMIR MILLER Room #: 434-P [facility] M.R.#: [id number] Admission: 08/24/20 Attend Phys: Chintan Jara MD Discharge: Date of : 42 Report #: [id number] THIS REPORT FOR: cc: Chintan Jara MD, Neal A. MD Althoff, Jeffrey R. MD ~ CC: Chintan Jara DATE OF SERVICE: 08/24/2020 CHIEF COMPLAINT: Skin tear to the right posterior knee. HISTORY: This is a 80-year-old female patient who was admitted to the hospital with cellulitis of the right hand. She has significant dementia. She is overweight and during a parts remover or a rotation in the bed, she developed a skin tear posterior to her right knee and I have been asked to see her with regard to wound care. She can provide no information about herself. The patient's stated that her skin is fragile and can tear easily. PAST MEDICAL HISTORY: Positive for history of morbid obesity, severe dementia, hyperlipidemia, previous kidney stones and previous umbilical hernia repair. SOCIAL HISTORY: The patient is , accompanied by her . No history of alcohol or tobacco use. FAMILY HISTORY: Noncontributory. MEDICATIONS: Include MiraLax, Ultram, buspirone, hydroxyzine, clotrimazole and betamethasone. ALLERGIES: To SULFA. REVIEW OF SYSTEMS: Unobtainable due to the patient's condition and otherwise pertinent issues have been discussed in the history of present illness. PHYSICAL EXAMINATION: VITAL SIGNS: At this time includes temperature 37.0, pulse 82, respiratory rate 18, blood pressure 182/88. GENERAL: This is a chronically ill-appearing female patient who appears to be in no distress. HEENT: Head normocephalic. Nose and throat are clear. NECK: Supple. LUNGS: Clear. ABDOMEN: Soft, obese, nontender. EXTREMITIES: Lower extremities demonstrate significant issues with obesity as well. There is skin tear posterior to the right lateral knee or popliteal fossa [facility] [address] [place] [address] CONSULTATION Name: AAMIR MILLER Room #: 434-P [facility] IN M.R.#: [id number] Admission: 08/24/20 Attend Phys: Chintan Jara MD Discharge: Date of : 42 Report #: [id number] region. It is not actively bleeding, does not appear to be infected. NEUROLOGIC: The patient appears to move symmetrically. She is disoriented and screams when touched. LABORATORY DATA: Include sodium 147, potassium 3.0, chloride 112, BUN 22, creatinine 0.8, glucose of 110, albumin is very low at 2.1. White blood cell count 6.8 with a hemoglobin of 13.5. CLINICAL IMPRESSION: 1. Traumatic wound/skin tear to the right posterior knee region. 2. Morbid obesity. 3. Cellulitis to the hand. 4. Hyperlipidemia. RECOMMENDATIONS: At this point in time, I think it is okay to continue the clotrimazole and betamethasone to any rash in her joint creases. We will recommend Xeroform, ABD tape daily to the posterior knee. She will need a low air loss mattress and frequent turning and repositioning ____ do not think she is very good with her own mobility. She will need aggressive nutritional support to maximize wound healing. I appreciate being asked to see her in consultation. <ELECTRONICALLY SIGNED> By: Charly Trejo MD 08/26/20 0824 [id number] Charly Trejo MD /nt
[2020-08-26 10:01] VITALS: BP 141/72
--- NOTE | 2020-08-26 11:23 | NUR ---
PT CARE ASSUMED AT 0700. A AND ORIENTED TO SELD. VERY [place]IGHTEND BASELINE. PT WILL NOT DC TODAY PER DR. MOLINA WITH A POS VENOUS DOPPLER OF THE R. ARM. SEE REULTS. KEEP ARM ELEVATED AND NO BLOOD PRESSURE MONITORING. TRAMADOL FOR PAIN. EXTERNAL SANDOVAL IN PLACE. IV PATENT WITH NO REDNESS OR EDEMA. R. ARM SWOLLEN, HOT TO THE TOUCH. FALL PROTOCOL IN PLACE. FAMILY IN ROOM. CALL LIGHT IN REACH. WILL CONTINUE TO MONITOR.
--- NOTE | 2020-08-26 16:51 | NUR ---
PT TO LIKELY DC HOME TOMORROW WIHT SPOUSE. FAX ORDERS TO [facility] AT CALL [place] AT AND NOTIFY OD FÉLIX. PT WILL NEED VAN TRANSPORT SET UP THROUGH [facility] CALL .
[2020-08-26 19:35] VITALS: BP 145/65
--- NOTE | 2020-08-27 05:14 | NUR ---
ASSUMED PT'S CARE THIS PM SHIFT. PT ORIENTED TO SELF. CONFUSED. FORGEFUL. INCONTINENT OF BLADDER. SEE EMAR FOR MEDS GIVEN. PT TOOK MEDS WHOLE WITH ORANGE JUICE. PREFFERED ORANGE JUCIE TO WATER. R/ARM RED WARM TO TOUCH AND EDEMATOUS, ELEVATED. DRESSING TO RT POSTERIOR KNEE CHANGED. SKIN TEAR TO L/POSTERIOR KNEE DRESSED. FALL PRECAUTIONS IN PLACE. CALL LIGHT WITHIN REACH. HOURLY ROUNDINGS MADE. WILL CONTINUE TO MONITOR.
[2020-08-27 07:00] VITALS: BP 134/73
[2020-08-27] MEDS ORDERED: CEFDINIR300 MG PO (09:24)
[2020-08-27] MEDS ORDERED: ELIQUIS5 MG PO (09:25)
--- NOTE | 2020-08-27 11:52 | NUR ---
PT DISCHARGING TODAY TO HOME WITH [facility] RECEIVED CONFIRMATION AND NOTIFIED ANS.SERVICE DISCHARGE. ARRANGED TRANSPORT WITH [facility] FOR 1230 NOTIFIED PT'S NURSE OF TIME OF TRANSPORT.
[2020-08-27 12:01] VITALS: BP 134/73
--- NOTE | 2020-08-27 12:14 | NUR ---
PT CARE ASSUMED AT 0700. ALERT AND ORIENTED TO SELF. PT VERY TEARFUL AND SCREAMING. TRMADOL GIVEN FOR PAIN AND ANXIETY MEDICATION WITH RESULTS. PT WAS ABLE TO CALM DOWN ENOUGH TO EAT HER BREAKFAST. IV PATENT, WITH NO REDNESS OR EDEMA. IV DC'D. PER DR. MOLINA PT IS TO DISCHARGE HOME WITH HOME HEALTH TODAY. REDNESS AND SWELLING REDUCED PER DR. MOLINA AND PT CLEARED TO DC. [facility] HAS BEEN SET UP. HAS BEEM NOTIFIED. PT DISCHARGED OVER THE PHONE WITH . NO FURTHER QUESTIONS FROM FAMILY. FALL PROTOCOL IN PLACE. CALL LIGHT IN REACH. WILL CONTINUE TO MONITOR.
== END 2020-08-27 13:02 | disposition home health service (06) | DRG 70 ==
LOC: ER 21:57 → 4S 08-24 00:53 → EROBS 08-24 00:53 → 4S 08-24 01:38
PROVIDERS: Emergency Medicine; ADMIT Family Medicine; ATTEND Family Medicine
DX: G93.41 Metabolic encephalopathy (principal); R65.11 Systemic inflammatory response syndrome (SIRS) of non-infectious origin with acute organ dysfunction; E43 Unspecified severe protein-calorie malnutrition; I82.621 Acute embolism and thrombosis of deep veins of right upper extremity; L03.113 Cellulitis of right upper limb; N39.0 Urinary tract infection, site not specified; I82.611 Acute embolism and thrombosis of superficial veins of right upper extremity; Z96.0 Presence of urogenital implants; E66.01 Morbid (severe) obesity due to excess calories; E87.6 Hypokalemia; S81.011A Laceration without foreign body, right knee, initial encounter; F03.90 Unspecified dementia, unspecified severity, without behavioral disturbance, psychotic disturbance, mood disturbance, and anxiety; I10 Essential (primary) hypertension; E78.5 Hyperlipidemia, unspecified; Z87.442 Personal history of urinary calculi; Z68.36 Body mass index [BMI] 36.0-36.9, adult; Z79.899 Other long term (current) drug therapy; Z88.1 Allergy status to other antibiotic agents; Z88.2 Allergy status to sulfonamides; X58.XXXA Exposure to other specified factors, initial encounter; Y93.89 Activity, other specified; Y92.89 Other specified places as the place of occurrence of the external cause; Y99.8 Other external cause status
CPT/HCPCS: 10195